=== PATIENT | male | born 1995 | race Hispanic/Latino ===

== ENCOUNTER 2016-10-04 11:01 | Emergency (ER) | payer SELFPAY ==
[~2016-10-04] VITALS: Ht 170.2 cm; Wt 76.2 kg
--- NOTE | 2016-10-04 12:36 | ED Back Pain ---
General Chief Complaint: Back Problems Stated Complaint: BACK PAIN Nursing Triage Note: Pt c/o back pain while lying down and sleeping for "quite some time" but reports it is worse today Nursing Sepsis Screen: No Definite Risk Source of Information: Patient, [employer] Exam Limitations: Language Barrier History of Present Illness Time Seen by Provider: 12:36 Initial Comments 21-year-old male patient presents to the emergency department complains of low back pain which is worse today after waking up. States he has chronic back pain , but denies taking anything at home for the pain. Denies bowel or bladder incontinence. Timing/Duration: 1-3 Hours Pain/Injury Location: Back Radiation: Other (denies radiation) Method of Injury: Unknown (denies known injury) Modifying Factors: Worse With Movement Associated Symptoms: muscle spasms, No fever, No weakness, No numbness in legs/ feet, No tingling in legs/feet, No sensory/motor loss, lower back pain, No loss of bladder control, No loss of bowel control Allergies and Home Medications Allergies Coded Allergies: No Known Drug Allergies (Unverified , 10/04/16) Home Medications Cyclobenzaprine HCl 10 Mg Tablet, 10 MG PO Q8H PRN for SPASMS, #10 Ref 0 Prescribed by: KALIE MARRERO on 10/04/16 1344 Naproxen 500 Mg Tablet, 500 MG PO BID PRN for pain, #20 Ref 0 Prescribed by: KALIE MARRERO on 10/04/16 1344 Prednisone 20 Mg Tab, 40 MG PO DAILY, #10 Ref 0 Prescribed by: KALIE MARRERO on 10/04/16 1344 Constitutional: No chills, No fever, No malaise Respiratory: no symptoms reported Cardiovascular: no symptoms reported Gastrointestinal: No abdominal pain, No constipation, No diarrhea, No nausea, No vomiting Genitourinary: No dysuria, No frequency, No hematuria, No pain Musculoskeletal: see HPI, back pain, No joint pain, No neck pain Skin: no symptoms reported Psychiatric/Neurological: Denies Numbness, Denies Paresthesia, Denies Tingling , Denies Weakness All Other Systems Reviewed Negative Unless Noted: Yes (Negative excepted noted.) Past [id number]-[id number] Hx Patient Social History Alcohol Use: Denies Use Recreational Drug Use: No Smoking Status: Never a Smoker Recent Foreign Travel: No Contact w/Someone Who Travel: No Recent Infectious Disease Expo: No Recent Hopitalizations: No Seasonal Allergies Seasonal Allergies: No Surgeries HX Surgeries: No Respiratory Hx Respiratory Disorders: No Cardiovascular Hx Cardiac Disorders: No Neurological Hx Neurological Disorders: No Genitourinary Hx Genitourinary Disorders: No Gastrointestinal Hx Gastrointestinal Disorders: No Musculoskeletal Hx Musculoskeletal Disorders: Yes Musculoskeletal Disorders: Chronic Back Pain Endocrine Hx Endocrine Disorders: No Reviewed Nursing Assessment Reviewed/Agree w Nursing PMH: Yes Family Medical History Significant Family History: No Pertinent Family Hx Physical Exam Vital Signs Vital Sign - Last 12Hours 10/04/16 11:36 Temp 98.3 Pulse 75 Resp 18 B/P (MAP) 128/48 Pulse Ox 100 O2 Delivery Room Air Capillary Refill : Less Than 3 Seconds General Appearance: No Apparent Distress, WD/WN, Other (patient sitting up in a chair with elbows on his knees. Moves without difficulty.) HEENT: PERRL/EOMI, Pharynx Normal Neck: Full Range of Motion, Normal Inspection, Non Tender, Supple Cardiovascular: Regular Rate, Rhythm, No Edema, No Murmur, Normal Peripheral Pulses Respiratory: Lungs Clear, Normal Breath Sounds, No Respiratory Distress Gastrointestinal: Normal Bowel Sounds, No Organomegaly, Non Tender, Soft Back: Normal Inspection, No Vertebral Tenderness, No Decreased Range of Motion , Muscle Spasm (left low back muscle spasm with TTP. no evidence of trauma noted. ) Extremity: Normal Capillary Refill, Normal Inspection, Normal Range of Motion, Non Tender, No Pedal Edema Neurologic/Psychiatric: Alert, Oriented x3, No Motor/Sensory Deficits, Normal Mood/Affect Skin: Normal Color, Warm/Dry Progress/Results/Core Measures Results/Orders Lab Results Laboratory Tests Test 10/04/16 12:56 Range/Units Urine Color YELLOW Urine Clarity CLEAR Urine pH 7 5-9 Urine Specific Robertson 1.015 L 1.016-1.022 Urine Protein NEGATIVE NEGATIVE Urine Glucose (UA) NEGATIVE NEGATIVE Urine Ketones NEGATIVE NEGATIVE Urine Nitrite NEGATIVE NEGATIVE Urine Bilirubin NEGATIVE NEGATIVE Urine Urobilinogen NORMAL NORMAL MG/DL Urine Leukocyte Esterase NEGATIVE NEGATIVE Urine RBC (Auto) NEGATIVE NEGATIVE Urine RBC NONE /HPF Urine WBC NONE /HPF Urine Squamous Epithelial Cells RARE /HPF Urine Crystals NONE /LPF Urine Bacteria NEGATIVE /HPF Urine Casts NONE /LPF Urine Mucus NEGATIVE /LPF Urine Culture Indicated NO My Orders Orders - KALIE MARRERO Ua Culture If Indicated (10/04/16 12:56) Cyclobenzaprine Tablet (Flexeril Tablet) (10/04/16 13:45) Ibuprofen Tablet (Motrin Tablet) (10/04/16 13:45) Vital Signs/I&O Vital Sign - Last 12Hours 10/04/16 10/04/16 11:36 14:08 Temp 98.3 98.3 Pulse 75 75 Resp 18 18 B/P (MAP) 128/48 Pulse Ox 100 100 O2 Delivery Room Air Blood Pressure Mean: 74 Departure Communication Progress Notes Patient seen and evaluated. Patient given Flexeril and ibuprofen in the emergency department. Plan for discharge to home with prescriptions for Flexeril, Naprosyn, and prednisone. Impression Impression: Primary Impression: Strain of lumbar paraspinous muscle Qualified Codes: S39.012A - Strain of muscle, fascia and tendon of lower back , initial encounter Disposition: HOME, SELF-CARE Condition: Improved Departure-Patient Inst. Decision time for Depature: 13:42 Referrals: NO,LOCAL PHYSICIAN (PCP/Family) Primary Care Physician Patient Instructions: Lumbar Muscle Strain (DC) Add. Discharge Instructions: All discharge instructions reviewed with patient and/or family. Voiced understanding. Medications as instructed. Tylenol extra strength over-the- counter as directed for pain. No heavy lifting for 5-7 days. Increase activity as tolerated. Ice packs or heating pads as needed for pain. Follow- up with your family practitioner for recheck if no improvement in symptoms in 7- 10 days. Return to the emergency department for worsened pain, numbness, weakness, bowel incontinence, bladder incontinence, or any other concerns. Scripts Prednisone (Prednisone) 20 Mg Tab 40 MG PO DAILY, #10 TAB 0 Refills Prov: KALIE MARRERO 10/04/16 Naproxen (Naprosyn) 500 Mg Tablet 500 MG PO BID Y for pain, #20 TAB 0 Refills Prov: KALIE MARRERO 10/04/16 Cyclobenzaprine HCl (Cyclobenzaprine HCl) 10 Mg Tablet 10 MG PO Q8H Y for SPASMS, #10 TAB 0 Refills Prov: KALIE MARRERO 10/04/16 Images Torso/Trunk 1 - Muscle Spams, Tenderness KALIE MARRERO Oct 04, 2016 12:36
[2016-10-04 13:02] LABS: BILIRUBIN,URINE NEGATIVE (NEGATIVE); KETONES,URINE NEGATIVE (NEGATIVE); LEUKOCYTE ESTERASE ,URINE NEGATIVE (NEGATIVE); NITRITE,URINE NEGATIVE (NEGATIVE); PH,URINE 7 (5-9); PROTEIN,URINE NEGATIVE (NEGATIVE); UROBILINOGEN,URINE NORMAL (NORMAL)
[2016-10-04 13:14] LABS: SQUAMOUS EPITHELIAL CELL,UR RARE /HPF
[2016-10-04] MEDS ORDERED: CYCL10TA9 PO (13:44)
[2016-10-04] MEDS ORDERED: NAPR500T PO (13:44)
[2016-10-04] MEDS ORDERED: PRD20T PO (13:44)
[2016-10-04] MEDS ORDERED: CYCLOBENZAPRINE 10 MG (FLEXERIL) TAB PO STA (13:45)
[2016-10-04] MEDS ORDERED: IBUPROFEN 800 MG (MOTRIN) TAB PO STA (13:45)
[2016-10-04 14:08] VITALS: BP 128/48
== END 2016-10-04 14:08 | disposition home or self-care (01) ==
LOC: ER 11:07
DX: S39.012A Strain of muscle, fascia and tendon of lower back, initial encounter (principal); X58.XXXA Exposure to other specified factors, initial encounter
CPT/HCPCS: 81000; 99284